=== PATIENT | male | born 1940 | race Caucasian/White ===

== ENCOUNTER 2016-10-21 14:23 | Outpatient (CLI) | payer MEDICARE ==
--- NOTE | 2016-10-21 21:46 | RAD ---
RIGHT HIP TWO VIEWS: Date: 10-21-16 FINDINGS: No fracture, dislocation, or acute bony change is seen. The adjacent pubic ring appears intact. Th e hip joint is normal in width. IMPRESSION: No acute finding. POS: HOME
== END 2016-10-21 14:24 | disposition home or self-care (01) ==
LOC: BURRAD 14:23
PROVIDERS: ATTEND Family Medicine
DX: M25.551 Pain in right hip (principal)

== ENCOUNTER 2018-09-16 08:56 | Outpatient (CLI) | payer MEDICARE ==
[2018-09-16 10:31] LABS: INR-International Normal Ratio 1.1; Prothrombin Time 13.8 SEC (12.0-14.7)
[2018-09-16 11:53] LABS: ALT (SGPT) 57 U/L (8-55); AST (SGOT) 45 U/L (5-34); Albumin 4.1 g/dL (3.4-4.8); Alkaline Phosphatase 75 U/L (40-150); Anion Gap 15 mmol/L (10-20); BUN (Urea Nitrogen) 24 mg/dL (8.4-25.7); Bilirubin, Total 1.2 mg/dL (0.2-1.2); Calc. Creatinine Clearance 0 mL/min (70-130); Calcium 9.9 mg/dL (7.8-10.44); Carbon Dioxide 22 mmol/L (23-31); Chloride 106 mmol/L (98-107); Estimated GFR-MDRD 51; Globulin 2.6 g/dL (2.4-3.5); Glucose 135 mg/dL (83-110); Potassium 3.9 mmol/L (3.5-5.1); Protein, Total 6.7 g/dL (5.8-8.1); Sodium 139 mmol/L (136-145)
--- NOTE | 2018-09-16 19:25 | ULT ---
HEPATIC ULTRASOUND: 09/16/18 Ultrasonography of the right upper quadrant was performed. The liver is slightly large measuring 16.5 cm in oblique sagittal length. It is not seen exceptionally well but no masses or dilated ducts were noted. It may be slightly echo dense, but this is not certain. The pancreas was largely obscured by gas, but the visible areas appeared normal. The aorta was not scanned on this study. The gallbladder contained no stones. The wall was not thickened. The common bile duct was borderline in size at 5 to 6 mm in caliber. The right kidney appeared normal and was 11.3 cm long. IMPRESSION: Borderline hepatic size without focal pathology seen. Borderline sized (5 to 6 mm) common bile duct. No specific pathology was imaged. POS: HOME
== END 2018-09-16 08:57 | disposition home or self-care (01) ==
LOC: BURULT 08:56
PROVIDERS: ATTEND Internal Medicine Gastroenterology
DX: K59.09 Other constipation (principal); D69.6 Thrombocytopenia, unspecified; R10.31 Right lower quadrant pain; Z86.010 Personal history of colon polyps
CPT/HCPCS: 36415; 76705; 80053; 85610